=== PATIENT | female | born 1970 ===

== ENCOUNTER 2019-01-01 01:36 | Outpatient (CLI) | payer MEDICAID, SELFPAY ==
[2019-01-01 09:37] LABS: Abs Immature Grans 0.01 k/cumm (0.0-0.09); Absolute Basophil Count 0.05 k/cumm (0.0-0.2); Absolute Eosinophil Count 0.14 k/cumm (0.0-0.7); Absolute Lymphocyte Count 1.93 k/cumm (1.2-3.4); Absolute Neutrophil Count 3.16 k/cumm (1.2-6.7); Basophils % 0.9; Eosinophils % 2.5; HCT 43.1 % (36.0-46.0); HGB 14.4 g/dL (12.0-15.5); Immature Grans % 0.2; Lymphocytes % 33.9; Mean Corp. HGB Concentration 33.4 g/dL (32.0-36.0); Mean Corpuscular Hemoglobin 31.5 pg (27.0-33.0); Mean Corpuscular Volume 94.3 fL (80-95); Mean Platelet Volume 10.2 fL (8.0-11.0); Neutrophils % 55.5; Platelet Count 278 x1000/uL (130-400); RBC 4.57 m/cumm (4.00-5.20); RBC Distribution Width 12.9 % (11.7-14.6); White Blood Cell Count 5.69 k/cumm (4.4-10.8)
[2019-01-01 09:43] LABS: Hemoglobin A1C 5.2 % (4.5-6.2)
[2019-01-01 10:33] LABS: Iron 149 ug/dL (50-175); Total Iron Binding Capacity 288 ug/dL (250-450); Transferrin Sat 52 % (15-50)
[2019-01-01 10:57] LABS: Vitamin D 25 Total 12.8 ng/ml (30-100)
[2019-01-01 11:06] LABS: ALT 29 U/L (12-78); AST 23 U/L (15-37); Alkaline Phosphatase 79 U/L (46-116); Anion Gap 9.8 mmol/L (3-11); BUN 18 mg/dL (7-18); Bilirubin, Total 0.4 mg/dL (0.2-1.0); CO2 27.2 mmol/L (21.0-32.0); CREATININE 0.87 mg/dL (0.55-1.02); Calcium 9.3 mg/dL (8.5-10.1); Chloride 105 mmol/L (98-107); Cholesterol 191 mg/dL (50-200); Ferritin 114 ng/mL (8-388); Folate 15.1 ng/mL (8.6-20.0); Glucose 99 mg/dL (70-100); HDL Cholesterol 74 mg/dL (40-60); LDL CHOLESTEROL 106 mg/dL (<100); Magnesium 2.2 mg/dL (1.8-2.4); Potassium 4.8 mmol/L (3.5-5.1); Sodium 142 mmol/L (136-145); TSH 3.41 uIU/mL (0.358-3.74); Total Protein 6.9 g/dL (6.4-8.2); Triglyceride 39 mg/dL (30-150); Vitamin B12 593 pg/mL (193-986)
[2019-01-01 11:38] LABS: FREE T4 0.82 ng/dL (0.76-1.46)
[2019-01-01 16:33] LABS: T3,Free 3.1 pg/ml (2.8-5.3)
== END 2019-01-01 01:56 ==
PROVIDERS: Visit Provider Naturopath
DX: Z00.00 Encounter for general adult medical examination without abnormal findings (principal); R53.83 Other fatigue
CPT/HCPCS: 36415; 80053; 80061; 82306; 83721; 82607; 82728; 82746; 83036; 83540; 83550; 83735; 84439; 84443; 84481; 85025